=== PATIENT | male | born 1960 | race Caucasian/White ===

== ENCOUNTER 2023-01-13 05:32 | Inpatient (IN) ==
[2023-01-13] MEDS ORDERED: IOPAMIDOL 100 ML BOTTLE IV ONE (05:33)
--- NOTE | 2023-01-13 05:54 | Emergency Department Note ---
HPI General Chief complaint: Cold/Flu Symptoms Stated complaint: cough Time Seen by Provider: 01/13/23 05:50 Mode of arrival: ambulatory History of Present Illness HPI Narrative: Narrative: This 62-year-old male presents complaining of a chronic cough which recently has become much worse. He states he has had this level of cough for 5 months but is becoming more productive he denies any fever sweats or chills. Patient has lung cancer and is currently receiving chemotherapy. He also has past medical history of bipolar disorder and chronic kidney disease through lithium and NSAID use. Related Data Home Medications Medication Instructions Recorded Confirmed lamotrigine 200 mg tablet 200 mg PO QDAY 03/22/16 01/13/23 olanzapine 10 mg tablet 15 mg PO QDAY 04/24/17 01/13/23 Osteo Bi-Flex 500 mg PO BID 01/14/23 01/14/23 [id number]-Z-[id number]-10 100 mg PO QDAY 01/14/23 01/14/23 bupropion HCl 300 mg PO QDAY 01/14/23 01/14/23 ferrous sulfate 65 mg PO QDAY 01/14/23 01/14/23 omeprazole 20 mg tablet,delayed 20 mg PO QDAY 01/14/23 01/14/23 release ondansetron 8 mg disintegrating 8 mg PO Q8HP PRN Nausea 01/14/23 01/14/23 tablet Previous Rx's Medication Instructions Recorded cefdinir 300 mg capsule 300 mg PO BID #7 caps 01/15/23 Allergies Allergy/AdvReac Type Severity Reaction Status Date / Time venom-honey bee Allergy Severe Anaphylaxis Verified 04/24/17 15:06 [bee venom (honey bee)] Review of Systems ROS ROS Narrative: Narrative: All systems ED: reviewed and negative except as stated. PFS Narrative Patient History Narrative: Narrative: Medical/Surgical/Family History All Active Problems (Updated 01/13/23 @ 15:54 by Yunier Mazariegos MD) Hypoxemia (Acute) Community acquired pneumonia (Acute) Metastatic renal cell carcinoma to liver (Acute) Metastatic renal cell carcinoma to lung (Acute) Renal cell carcinoma of left kidney (Acute) Bipolar disorder (Acute) Generalized anxiety disorder (Acute) Hx of wisdom tooth extraction (Acute) Hx of tonsillectomy (Acute) Hx of colonoscopy (Acute) Hx of adenoidectomy (Acute) Sebaceous cyst (Chronic) Polyuria (Chronic) Polydipsia (Chronic) Abnormal glucose (Chronic) Chronic kidney disease (CKD), stage III (moderate) (Chronic) Bipolar disorder (Chronic) Medical History (Updated 01/13/23 @ 15:54 by Yunier Mazariegos MD) Abnormal glucose Bipolar disorder Type I Bipolar disorder Chronic kidney disease (CKD), stage III (moderate) Most recent s.creat is 1.4 which equals to egfr of 56ml/min per MDRD equation no h/o proteinuria use of lithium and NSAIDS is the risk factor for renal disease no electrolyte issues labs discussed with the pt once again emphasized the need for better water intake avoid NSAIDS will monitor in 6 mths Generalized anxiety disorder Polydipsia Polyuria Sebaceous cyst Surgical History (Updated 12/02/20 @ 10:57 by [employer]) Hx of adenoidectomy Hx of colonoscopy 12/2006 adenomatous polyps Hx of tonsillectomy Hx of wisdom tooth extraction Family History father Alcohol abuse mother Malignant neoplasm of colon paternal grandmother Arthritis In situ malignant neoplasm of skin maternal grandfather Malignant neoplasm of prostate Social History Alcohol Intake Frequency: holiday/special occasion only Exam Narrative Narrative: Narrative: General: Alert oriented x3 answers questions cogently. Skin: Very pa le. Pulmonary: Positive rhonchi on the right side to approximately alf up with no rales or wheezes. CV: Regular rate and rhythm without murmurs clicks rubs or gallops. Course Vital Signs Vital signs: Vital Signs Temperature 98.9 F 01/13/23 05:33 Pulse Rate 92 H 01/13/23 05:33 Respiratory Rate 24 H 01/13/23 05:33 Blood Pressure 128/65 01/13/23 05:33 Pulse Oximetry (%) 93 01/13/23 05:33 Oxygen Delivery Method Room Air 01/13/23 05:33 Temperature 99 F 01/15/23 15:14 Pulse Rate 84 01/15/23 15:14 Respiratory Rate 22 01/15/23 15:14 Blood Pressure 106/64 01/15/23 15:14 Pulse Oximetry (%) 92 01/15/23 15:14 Oxygen Delivery Method Nasal Cannula 01/15/23 15:14 Oxygen Flow Rate (L/min) 3 01/15/23 15:14 MDM MDM Narrative Medical decision making narrative: Narrative: Patient's chest x-ray has diffuse lesions presumably multiple foci of neoplasia. He also has what appears to be a right lower lobe infiltrate. His white count is normal although his H&H has a marked anemia since last April when he had a hemoglobin of 14. It is now 8.6 hematocrit 31.2 his platelets are normal BUN and creatinine are 25 and 1.3 procalcitonin is pending at this time as is a D-dimer. The patient was 89% SaO2 on room air. Treated the patient in the ED with azithromycin 500 p.o. as well as guaifenesin with codeine. The rest of the patient's lab work is not back at the time of this dictation; will turn over the patient at 0700 to my colleague coming on at that time. Sepsis Sepsis Identified: No Lab Data 01/15/23 05:55 01/14/23 05:25 Labs: Lab Results 01/13/23 01/13/23 01/13/23 Range/Units 06:02 06:03 06:03 WBC 6.3 (4.5-11.0) K/mcL RBC 3.86 L (4.63-6.08) M/mcL Hgb 8.6 L (13.7-17.5) g/dL Hct 31.2 L (40.1-51.0) % POC Hct (41-55) MCV 80.8 (80.0-100.0) fL MCH 22.3 L (26.0-34.0) pg MCHC 27.6 L (31.0-36.0) g/dL RDW 20.2 H (11.5-14.5) % Plt Count 324 (140-440) K/mcL MPV 8.3 L (8.8-12.5) fL Immature Gran % (Auto) 0.6 H (0.0-0.5) % Neut % (Auto) 64.4 (38.0-78.0) % Lymph % (Auto) 19.5 (15.5-49.0) % [place] % (Auto) 13.8 H (1.0-12.0) % Eos % (Auto) 0.6 (0.0-7.0) % Baso % (Auto) 1.1 (0.0-2.0) % Lymph # (Auto) 1.23 L (1.50-4.80) K/mcL [place] # (Auto) 0.87 (0.10-0.90) K/mcL Eos # (Auto) 0.04 (0.00-0.70) K/mcL Baso # (Auto) 0.07 (0.00-0.30) K/mcL Immature Gran # 0.04 (0.00-0.05) K/mcl Absolute Neutrophils 4.06 (1.80-8.00) K/mcL D-Dimer 1.86 H (0.27-0.50) ug/mL POC Sodium (133-145) POC Potassium (3.3-5.1) POC Chloride (96-108) POC Total CO2 (22-30) POC BUN (6-20) POC Creatinine (0.6-1.2) POC Glucose (70-105) POC WB Ioniz Calcium (1.16-1.32) Procalcitonin 0.82 H (<0.10) ng/mL 01/13/23 Range/Units 06:06 WBC (4.5-11.0) K/mcL RBC (4.63-6.08) M/mcL Hgb (13.7-17.5) g/dL Hct (40.1-51.0) % POC Hct 30.0 L (41-55) MCV (80.0-100.0) fL MCH (26.0-34.0) pg MCHC (31.0-36.0) g/dL RDW (11.5-14.5) % Plt Count (140-440) K/mcL MPV (8.8-12.5) fL Immature Gran % (Auto) (0.0-0.5) % Neut % (Auto) (38.0-78.0) % Lymph % (Auto) (15.5-49.0) % [place] % (Auto) (1.0-12.0) % Eos % (Auto) (0.0-7.0) % Baso % (Auto) (0.0-2.0) % Lymph # (Auto) (1.50-4.80) K/mcL [place] # (Auto) (0.10-0.90) K/mcL Eos # (Auto) (0.00-0.70) K/mcL Baso # (Auto) (0.00-0.30) K/mcL Immature Gran # (0.00-0.05) K/mcl Absolute Neutrophils (1.80-8.00) K/mcL D-Dimer (0.27-0.50) ug/mL POC Sodium 136 (133-145) POC Potassium 4.2 (3.3-5.1) POC Chloride 100 (96-108) POC Total CO2 27.0 (22-30) POC BUN 25 H (6-20) POC Creatinine 1.3 H (0.6-1.2) POC Glucose 102 (70-105) POC WB Ioniz Calcium 1.26 (1.16-1.32) Procalcitonin (<0.10) ng/mL Discharge Plan Patient/Caregiver Discharge Instructions Pt seen by BREAKFAST SERVER/PA only: No Clinical Impression: Hypoxemia Activity: increase activity as tolerated Patient Disposition: Xfer As Inpt ([facility]) Condition: Undetermined Discharge Date/Time: 01/13/23 16:15
[2023-01-13] MEDS ORDERED: guaiFENesin/CODEINE 10 ML UDC PO ONE (06:00)
[2023-01-13 06:10] LABS: POC Calcium, Ionized 1.26 (1.16-1.32); POC Creatinine 1.3 (0.6-1.2); POC Potassium 4.2 (3.3-5.1)
[2023-01-13 06:34] LABS: Basophils # (Auto) 0.07 K/mcL (0.00-0.30); Basophils % (Auto) 1.1 % (0.0-2.0); Eosinophils # (Auto) 0.04 K/mcL (0.00-0.70); Eosinophils % (Auto) 0.6 % (0.0-7.0); Hematocrit 31.2 % (40.1-51.0); Hemoglobin 8.6 g/dL (13.7-17.5); Lymphocytes # (Auto) 1.23 K/mcL (1.50-4.80); Lymphocytes % (Auto) 19.5 % (15.5-49.0); Mean Cell Volume 80.8 fL (80.0-100.0); Mean Corpuscular HGB Conc 27.6 g/dL (31.0-36.0); Mean Platelet Volume 8.3 fL (8.8-12.5); Monocytes # (Auto) 0.87 K/mcL (0.10-0.90); Monocytes % (Auto) 13.8 % (1.0-12.0); Neutrophils % (Auto) 64.4 % (38.0-78.0); Platelet Count 324 K/mcL (140-440); RBC 3.86 M/mcL (4.63-6.08); Red Cell Distribution Width 20.2 % (11.5-14.5); WBC 6.3 K/mcL (4.5-11.0)
[2023-01-13] MEDS ORDERED: AZITHROMYCIN 250 MG TABLET PO ONE (06:37)
--- NOTE | 2023-01-13 06:41 | XRay Report ---
INDICATION: cough TECHNIQUE: AP chest x-ray COMPARISON: None FINDINGS:Right chemotherapy infusion catheter. Catheter tip is in the superior vena cava. Lungs:Innumerable masses throughout both lungs. Appearance is consistent with disseminated pulmonary parenchymal metastases. No parenchymal consolidation or evidence for acute pneumonia Heart, vascular:No significant cardiomegaly. Pulmonary vascularity is normal. No pulmonary edema or pulmonary congestion Mediastinum, val:No mediastinal widening. No hilar mass Pleura:No pleural fluid. No pleural-based mass or calcification Skeletal:No rib lesions identified IMPRESSION: 1. Bilateral pulmonary parenchymal masses consistent with disseminated metastases 2. No evidence for pneumonia. No pulmonary edema. Interpreted and Authenticated by: Jitendra Byrd 01/13/23
--- NOTE | 2023-01-13 08:17 | Cat Scan Report ---
INDICATION: elevated d-dimer COMPARISON: Chest x-ray dated 01/13/2023 TECHNIQUE: Axial images obtained through the chest. 100ml Isovue 370 injected intravenously, and scanning was performed during pulmonary arterial phase. Sagittally and coronally reformatted images were obtained. MIP reformatted images. The examination was repeated with a total of 100 mL contrast material injected. Opacification of the pulmonary vasculature is suboptimal. FINDINGS: Lungs:Multiple round masses within both lungs. Appearance is consistent with pulmonary parenchymal metastases. This patient gives a history of renal cell carcinoma. There is mild groundglass density at both lung bases. Appearance is most consistent with dependent atelectasis. Pneumonia is possible. There is no parenchymal consolidation. Mediastinum, vascular:Main pulmonary artery, right pulmonary artery, left pulmonary artery are negative. No intraluminal filling defects. No lobar or segmental emboli. Thoracic aorta is negative. No aneurysmal dilatation No pathologic mediastinal or hilar adenopathy Heart:There is mild cardiomegaly. There is reflux of contrast material into the inferior vena cava and hepatic veins consistent with right heart strain Pleura:No significant pleural effusion. No pleural mass or calcification Axilla, supraclavicular regions, chest wall:No pathologic axillary or supraclavicular adenopathy. Musculoskeletal:Negative thoracic spine. No compression fracture. No lytic lesion. No rib or sternal lesions Upper Abdomen:Very large enhancing mass in the right lobe of the liver. This has been peripheral enhancement and low density center. Although a giant hemangioma can have an appearance similar to this on this patient has disseminated metastases in this is probably a necrotic metastasis. There is an enhancing left renal mass consistent with renal cell carcinoma. IMPRESSION: 1. Technically limited pulmonary CTA. No pulmonary emboli identified 2. Disseminated parenchymal metastases 3. Enhancing mass in the left kidney consistent with neoplasm 4. Very large hepatic mass could be a giant hemangioma but necrotic neoplasm suspected 5. Cardiomegaly. Reflux of contrast material into the inferior vena cava consistent with right heart strain The exam was performed using radiation dose optimization techniques including, but not limited to, automated exposure control, adjustment of the mA and/or kV according to patient size and use of iterative reconstruction technique. Interpreted and Authenticated by: Jitendra Byrd 01/13/23
[2023-01-13] MEDS ORDERED: cefTRIAXone 1 GM VIAL IV ONE (09:47)
--- NOTE | 2023-01-13 15:03 | Internal Med History&Physical ---
HPI History of Present Illness Patient information: Note initiated : 01/13/23 at 2:52 pm Service Date, if different from initiated Date: [] Patient: Eric Fuentes a 62 y/o M admitted on for cough. Chief Complaint: [weakness, shortness of breath] Chief complaint: weakness, shortness of breath History of present illness: Mr. Fuentes is a 62 year old M history of recently diagnosed renal cell carcinoma, bipolar disorder, general anxiety disorder, presenting with 4 weeks history of progressively worsening general body weakness, nonproductive cough, shortness of breath, and diaphoresis. He was being diagnosed with renal cell carcinoma in September 2022, and he is in the prior cyst of chemotherapy. Over the past 4 weeks, patient is experiencing progressively worsening general body weakness, shortness of breath, nonproductive cough, and diaphoresis. He presented to our ED today for further evaluations due to the worsening nature of his symptoms. Vital signs significant for oxygen desaturations when he ambulates to the point that he would require up to 2 L/min nasal cannula oxygen's. Otherwise the rest of the vital signs were within normal limits. Labs significant for lack of leukocytosis with WBC 6.3. COVID, influenza a and B, RSV screening are negative. D-dimer elevated at 1.86. Procalcitonin level 0.82. Chest x-ray and CT angiogram of the chest were performed showing negative for pulmonary embolism, negative for focal infiltrate, but positive for disseminated parenchymal metastasis. It also showing enhancing mass in the left kidney consistent with the history of the renal cell carcinoma. There is also a very large hepatic mass that could be a giant hemangioma but necrotic neoplasm suspected. ER physician tried to contact to [facility] where his oncology team is located in the would be okay to be consulted for the care of the patient's but there hospitalist refused to admit the patient. I would like to offer to start therapy for the patient here and with encouraged or suggest to transfer the care to [facility] if the patient's conditions continue to deteriorate. Constitutional Constitutional: Present excessive sweating and weakness; Absent chills or fatigue EENT Eyes: Absent blurry vision, change in vision, loss of vision or other visual disturbances Ears: Absent decreased hearing or tinnitus Nose, mouth and throat: Absent abnormal hearing, dry mouth, headache(s), nasal congestion or sore throat Cardiovascular Cardiovascular: Absent chest pain, chest pain at rest, edema, irregular heart rhythm or palpatations Respiratory Respiratory: Present cough and dyspnea; Absent wheezing Gastrointestinal Gastrointestinal: Absent abdominal pain, constipation, diarrhea, nausea or vomiting Musculoskeletal Musculoskeletal: Absent back pain, deformity, limited range of motion, muscle cramps, muscle weakness or numbness Integumentary Integumentary: Absent lesions, rash or wounds Neurological Neurological: Absent focal weakness, headache(s) or numbness Psychiatric Psychiatric: Absent anxiety, depression or hallucinations PFSH PFSH All Active Problems (Updated 01/13/23 @ 14:59 by Hugo Rangel MD) Community acquired pneumonia (Acute) Metastatic renal cell carcinoma to liver (Acute) Metastatic renal cell carcinoma to lung (Acute) Renal cell carcinoma of left kidney (Acute) Bipolar disorder (Acute) Generalized anxiety disorder (Acute) Hx of wisdom tooth extraction (Acute) Hx of tonsillectomy (Acute) Hx of colonoscopy (Acute) Hx of adenoidectomy (Acute) Sebaceous cyst (Chronic) Polyuria (Chronic) Polydipsia (Chronic) Abnormal glucose (Chronic) Chronic kidney disease (CKD), stage III (moderate) (Chronic) Bipolar disorder (Chronic) Medical History (Updated 01/13/23 @ 14:59 by Hugo Rangel MD) Abnormal glucose Bipolar disorder Type I Bipolar disorder Chronic kidney disease (CKD), stage III (moderate) Most recent s.creat is 1.4 which equals to egfr of 56ml/min per MDRD equation no h/o proteinuria use of lithium and NSAIDS is the risk factor for renal disease no electrolyte issues labs discussed with the pt once again emphasized the need for better water intake avoid NSAIDS will monitor in 6 mths Generalized anxiety disorder Polydipsia Polyuria Sebaceous cyst Surgical History (Updated 12/02/20 @ 10:57 by [employer] [place]) Hx of adenoidectomy Hx of colonoscopy 12/2006 adenomatous polyps Hx of tonsillectomy Hx of wisdom tooth extraction Family History father Alcohol abuse mother Malignant neoplasm of colon paternal grandmother Arthritis In situ malignant neoplasm of skin maternal grandfather Malignant neoplasm of prostate Social History marital status: single frequency: 5-6 times per week alcohol intake frequency: holiday/special occasion only MEDS/ALLERGIES Home Medications and Allergies Home Medications Medication Instructions Recorded Confirmed Type lamotrigine 200 mg tablet 200 mg PO QDAY 03/22/16 04/24/17 History olanzapine 10 mg tablet 15 mg PO QDAY 04/24/17 04/24/17 History Allergies Allergy/AdvReac Type Severity Reaction Status Date / Time venom-honey bee Allergy Severe Anaphylaxis Verified 04/24/17 15:06 [bee venom (honey bee)] EXAM Constitutional Vitals: Temp Pulse Resp BP Pulse Ox O2 Del Method O2 Flow Rate 37.2 C 100 H 24 H 139/70 94 Room Air 2 01/13/23 05:33 01/13/23 13:00 01/13/23 14:30 01/13/23 14:30 01/13/23 12:30 01/13/23 10:12 01/13/23 07:59 General appearance: cooperative and no acute distress Head Head exam: Present atraumatic and normocephalic Eye Eye exam: Present EOMI and PERRL ENT ENT exam: Present mucous membranes moist, normal exam and normal external ear exam Neck Neck exam: Present normal inspection; Absent lymphadenopathy, tenderness or thyromegaly Respiratory Respiratory exam: Present decreased breath sounds and rhonchi; Absent accessory muscle use, respiratory distress or wheezes Cardiovascular Cardiovascular exam: Present normal rate and rhythm; Absent JVD GI/Abdominal GI/Abdominal exam: Present normal bowel sounds and soft; Absent organomegaly or tenderness Rectal Rectal exam: Present deferred Extremities Exam Extremities exam: Present full ROM, normal capillary refill and normal inspection; Absent tenderness Neurological Exam Neurological exam: Present alert, CN II-XII intact and oriented X3; Absent motor sensory deficit Psychiatric Psychiatric exam: Present normal affect and normal mood; Absent anxious or depressed Skin Skin exam: Present dry and intact DATA Data Completed and Pending Labs: Labs from last 24 hours 01/13/23 01/13/23 01/13/23 06:06 06:03 06:03 WBC 6.3 RBC 3.86 L Hgb 8.6 L Hct 31.2 L POC Hct 30.0 L MCV 80.8 MCH 22.3 L MCHC 27.6 L RDW 20.2 H Plt Count 324 MPV 8.3 L Immature Gran % (Auto) 0.6 H Neut % (Auto) 64.4 Lymph % (Auto) 19.5 [place] % (Auto) 13.8 H Eos % (Auto) 0.6 Baso % (Auto) 1.1 Lymph # (Auto) 1.23 L [place] # (Auto) 0.87 Eos # (Auto) 0.04 Baso # (Auto) 0.07 Immature Gran # 0.04 Absolute Neutrophils 4.06 D-Dimer 1.86 H POC Sodium 136 POC Potassium 4.2 POC Chloride 100 POC Total CO2 27.0 POC BUN 25 H POC Creatinine 1.3 H POC Glucose 102 POC WB Ioniz Calcium 1.26 Procalcitonin 01/13/23 06:02 WBC RBC Hgb Hct POC Hct MCV MCH MCHC RDW Plt Count MPV Immature Gran % (Auto) Neut % (Auto) Lymph % (Auto) [place] % (Auto) Eos % (Auto) Baso % (Auto) Lymph # (Auto) [place] # (Auto) Eos # (Auto) Baso # (Auto) Immature Gran # Absolute Neutrophils D-Dimer POC Sodium POC Potassium POC Chloride POC Total CO2 POC BUN POC Creatinine POC Glucose POC WB Ioniz Calcium Procalcitonin 0.82 H A/P Assessment and plan (1) Bipolar disorder: Status: Acute (2) Generalized anxiety disorder: Status: Acute (3) Renal cell carcinoma of left kidney: Status: Acute (4) Metastatic renal cell carcinoma to lung: Status: Acute (5) Metastatic renal cell carcinoma to liver: Status: Acute (6) Community acquired pneumonia: Status: Acute Narrative A/P Narrative: Assessment and Plans: 1. Dyspnea, weakness: DDx: metastatic renal cell carcinoma to lung, community acquired pneumonia: ER physician tried to contact to [facility] where his oncology team is located in the would be okay to be consulted for the care of the patient's but there hospitalist refused to admit the patient. I would like to offer to start therapy for the patient here and with encouraged or suggest to transfer the care to [facility] if the patient's conditions continue to deteriorate. Observation med surg Serial lactic acid Procalcitonin level Blood culture cbc w/ auto diff in the morning to trend WBC Rocephin Zithromax Robitussin DM Supplemental oxygen therapy as needed to achieve spo2>=92% Physical therapy evaluation and treatment manager storage consultation 2. Renal cell 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: Need oncology team to follow up either inpatient or outpatient 3. Bipolar depression with anxiety: Lamotrigine Olanzapine GI ppx: not currently indicated DVT ppx: Lovenox Code status: Full Prognosis: guarded Disposition: observation med surg; PT Time Spent With Patient Time: Total time spent is greater than 50% in coordination of care (as documented) at patient's floor/unit and/or counseling patient: Initial: Total time with patient: 55 - 74 minutes
--- NOTE | 2023-01-13 15:54 | Emergency Department Note ---
Course Course Course Narrative: Patient is a 62-year-old male signed out to me by Dr. Figueroa. Briefly, patient presented due to cough, but was found to have hypoxemia. Patient has known renal cell carcinoma with metastases to the liver and lungs. D-dimer was elevated. CT angiogram of the chest was pending at the time of signout. Vital Signs Vital signs: Vital Signs Temperature 98.9 F 01/13/23 05:33 Pulse Rate 92 H 01/13/23 05:33 Respiratory Rate 24 H 01/13/23 05:33 Blood Pressure 128/65 01/13/23 05:33 Pulse Oximetry (%) 93 01/13/23 05:33 Oxygen Delivery Method Room Air 01/13/23 05:33 Temperature 98.9 F 01/13/23 05:33 Pulse Rate 100 H 01/13/23 13:00 Respiratory Rate 24 H 01/13/23 14:30 Blood Pressure 127/64 01/13/23 15:00 Pulse Oximetry (%) 94 01/13/23 12:30 Oxygen Delivery Method Room Air 01/13/23 10:12 Oxygen Flow Rate (L/min) 2 01/13/23 07:59 [facility] MDM Narrative Medical decision making narrative: Narrative: Patient is a 62-year-old male who presented to the emergency department due to cough, but was found to have hypoxemia. CT angio demonstrates the lung metastases and bilateral groundglass opacity. Atelectasis favored, but pneumonia is possible. For this reason patient has received ceftriaxone and azithromycin. Due to patient's oncology diagnosis I did speak to Dr. Sanchez in [place]. She did not have specific recommendations, but stated that she would see the patient at [facility] if we transferred to [facility]. I then spoke with the patient. He is in agreement with the plan for admission, but requested admission at [facility]. Due to his oncology diagnosis and his request for an admission at [facility] we did call [facility]. Initially there were no beds available. I spoke with patient again about this. He requested that we wait until early afternoon to see if a bed would become available. [facility] does have an available bed at this time. I spoke with Dr. Williamson who did not agree that patient should be in a location with oncology. She stated that he should be treated for his hypoxemia and potential pneumonia and then consider transfer if there continue to be or are increased concerns for patient's hypoxemia being due to his lung metastases. I did speak to her about the patient requesting a transfer. She stated that she was concerned that this would be an EMTALA violation. I did tell her that I did not think that this would be an EMTALA violation, but she did request that I speak to our hospitalist and the patient again. I spoke to the patient and he did eventually agree to an admission at [facility] if the hospitalist agrees to this. I then spoke to Dr. Rangel and he stated concern about patient's oncology diagnosis and the likelihood that his s ymptoms could be due to this diagnosis. He was concerned that patient would need other specialties including oncology involved. I did ask Dr. Rangel if he could speak to Dr. Williamson because I had already relayed all of these concerns. He did agree. Ashlyn, dye house wheel operator, did update me on the situation with the patient's admission. She stated that there was an attempt made to contact Dr. Williamson again, but she refused to speak to Dr. Rangel, per Ashlyn, because she had already been called too many times. Dr. Rangel did agree at that time to admit patient and to continue to reevaluate until he is able to reach out again to [facility]. Lab Data 01/13/23 06:03 Labs: Lab Results 01/13/23 01/13/23 01/13/23 Range/Units 06:02 06:03 06:03 WBC 6.3 (4.5-11.0) K/mcL RBC 3.86 L (4.63-6.08) M/mcL Hgb 8.6 L (13.7-17.5) g/dL Hct 31.2 L (40.1-51.0) % POC Hct (41-55) MCV 80.8 (80.0-100.0) fL MCH 22.3 L (26.0-34.0) pg MCHC 27.6 L (31.0-36.0) g/dL RDW 20.2 H (11.5-14.5) % Plt Count 324 (140-440) K/mcL MPV 8.3 L (8.8-12.5) fL Immature Gran % (Auto) 0.6 H (0.0-0.5) % Neut % (Auto) 64.4 (38.0-78.0) % Lymph % (Auto) 19.5 (15.5-49.0) % [place] % (Auto) 13.8 H (1.0-12.0) % Eos % (Auto) 0.6 (0.0-7.0) % Baso % (Auto) 1.1 (0.0-2.0) % Lymph # (Auto) 1.23 L (1.50-4.80) K/mcL [place] # (Auto) 0.87 (0.10-0.90) K/mcL Eos # (Auto) 0.04 (0.00-0.70) K/mcL Baso # (Auto) 0.07 (0.00-0.30) K/mcL Immature Gran # 0.04 (0.00-0.05) K/mcl Absolute Neutrophils 4.06 (1.80-8.00) K/mcL D-Dimer 1.86 H (0.27-0.50) ug/mL POC Sodium (133-145) POC Potassium (3.3-5.1) POC Chloride (96-108) POC Total CO2 (22-30) POC BUN (6-20) POC Creatinine (0.6-1.2) POC Glucose (70-105) POC WB Ioniz Calcium (1.16-1.32) Procalcitonin 0.82 H (<0.10) ng/mL 01/13/23 Range/Units 06:06 WBC (4.5-11.0) K/mcL RBC (4.63-6.08) M/mcL Hgb (13.7-17.5) g/dL Hct (40.1-51.0) % POC Hct 30.0 L (41-55) MCV (80.0-100.0) fL MCH (26.0-34.0) pg MCHC (31.0-36.0) g/dL RDW (11.5-14.5) % Plt Count (140-440) K/mcL MPV (8.8-12.5) fL Immature Gran % (Auto) (0.0-0.5) % Neut % (Auto) (38.0-78.0) % Lymph % (Auto) (15.5-49.0) % [place] % (Auto) (1.0-12.0) % Eos % (Auto) (0.0-7.0) % Baso % (Auto) (0.0-2.0) % Lymph # (Auto) (1.50-4.80) K/mcL [place] # (Auto) (0.10-0.90) K/mcL Eos # (Auto) (0.00-0.70) K/mcL Baso # (Auto) (0.00-0.30) K/mcL Immature Gran # (0.00-0.05) K/mcl Absolute Neutrophils (1.80-8.00) K/mcL D-Dimer (0.27-0.50) ug/mL POC Sodium 136 (133-145) POC Potassium 4.2 (3.3-5.1) POC Chloride 100 (96-108) POC Total CO2 27.0 (22-30) POC BUN 25 H (6-20) POC Creatinine 1.3 H (0.6-1.2) POC Glucose 102 (70-105) POC WB Ioniz Calcium 1.26 (1.16-1.32) Procalcitonin (<0.10) ng/mL Discharge Plan Patient/Caregiver Discharge Instructions Pt seen by SPRING FORGER/PA only: No Clinical Impression: Hypoxemia Patient Disposition: Xfer As Inpt ([facility]) Follow up with: Anuj Maki MD [Primary Care Provider] - Prescriptions: No Action lamotrigine 200 mg tablet 200 mg PO QDAY olanzapine 10 mg tablet 15 mg PO QDAY
[2023-01-13] MEDS ORDERED: traZODone HCL 50 MG TABLET PO PRN (15:56)
[2023-01-13] MEDS ORDERED: ONDANSETRON 4 MG/2 ML VIAL IV PRN (15:56)
[2023-01-13] MEDS ORDERED: oxyCODONE HCL 5 MG TABLET PO PRN (15:56)
[2023-01-13] MEDS ORDERED: cefTRIAXone 1 GM in DEXTROSE 5% IN WATER 50 ML IV SCH (15:56)
[2023-01-13] MEDS ORDERED: AZITHROMYCIN 500 MG in DEXTROSE 5% IN WATER 250 ML IV SCH (15:56)
[2023-01-13] MEDS ORDERED: morphine 4 MG/ML VIAL IV PRN (15:56)
[2023-01-13] MEDS ORDERED: guaiFENesin/DEXTROMETHORPHAN 5ML UD CUP PO PRN (15:56)
[2023-01-13] MEDS ORDERED: IPRATROPIUM/ALBUTEROL 3 ML AMPUL.NEB NEB PRN (15:56)
[2023-01-13] MEDS: 0.9 % SODIUM CHLORIDE 1,000 ML IV SCH (16:50)
[2023-01-13] MEDS ORDERED: PNEUMOCOCCAL 23-VAL P-SAC VAC 0.5 ML SYRINGE IM ONE (17:36)
[2023-01-13] MEDS: ACETAMINOPHEN 325 MG TABLET PO PRN (19:10)
[2023-01-13] MEDS: DOCUSATE SODIUM 100 MG CAPSULE PO SCH (20:44)
[2023-01-13] MEDS: SENNOSIDES 1 TABLET PO SCH (20:45)
[2023-01-13] MEDS: 0.9 % SODIUM CHLORIDE 10 ML SYRINGE IV SCH (20:55)
[2023-01-14] MEDS: 0.9 % SODIUM CHLORIDE 1,000 ML IV SCH ×3 (03:28→23:08)
[2023-01-14 06:21] LABS: Basophils # (Auto) 0.04 K/mcL (0.00-0.30); Basophils % (Auto) 0.6 % (0.0-2.0); Eosinophils # (Auto) 0.01 K/mcL (0.00-0.70); Eosinophils % (Auto) 0.2 % (0.0-7.0); Hematocrit 28.7 % (40.1-51.0); Hemoglobin 7.9 g/dL (13.7-17.5); Lymphocytes # (Auto) 1.09 K/mcL (1.50-4.80); Lymphocytes % (Auto) 17.4 % (15.5-49.0); Mean Cell Volume 81.3 fL (80.0-100.0); Mean Corpuscular HGB Conc 27.5 g/dL (31.0-36.0); Mean Platelet Volume 8.6 fL (8.8-12.5); Monocytes # (Auto) 0.73 K/mcL (0.10-0.90); Monocytes % (Auto) 11.6 % (1.0-12.0); Neutrophils % (Auto) 69.4 % (38.0-78.0); Platelet Count 275 K/mcL (140-440); RBC 3.53 M/mcL (4.63-6.08); Red Cell Distribution Width 20.2 % (11.5-14.5); WBC 6.3 K/mcL (4.5-11.0)
[2023-01-14] MEDS: 0.9 % SODIUM CHLORIDE 10 ML SYRINGE IV SCH ×3 (06:22→20:53)
[2023-01-14 06:47] LABS: ALT/SGPT 22 U/L (<40); AST/SGOT 23 U/L (<40); Albumin 2.3 gm/dL (3.2-5.2); Albumin/Globulin Ratio 0.6 (1.0-2.3); Alkaline Phosphatase 561 U/L (39-117); Bilirubin,Total 0.5 mg/dL (0.1-1.0); Blood Urea Nitrogen 21 mg/dL (6-20); Calcium 9.6 mg/dL (8.6-10.4); Carbon Dioxide 25 mmol/L (22-30); Chloride 102 mmol/L (96-108); Globulin 3.6 gm/dL (2.2-3.7); Glomerular Filtration Rate 65; Glucose 94 mg/dL (70-105)
[2023-01-14] MEDS: ENOXAPARIN 40 MG/0.4 ML SYRINGE SQ SCH (08:01)
[2023-01-14] MEDS: lamoTRIgine 100 MG TABLET PO SCH (08:01)
[2023-01-14] MEDS: OLANZapine 5 MG TABLET PO SCH (08:01)
[2023-01-14] MEDS: DOCUSATE SODIUM 100 MG CAPSULE PO SCH ×2 (08:01→20:53)
[2023-01-14] MEDS: cefTRIAXone 1 GM VIAL IV SCH (08:39)
--- NOTE | 2023-01-14 09:48 | Internal Med Progress Note ---
SUBJECTIVE Subjective Patient information: Note initiated : 01/14/23 at 9:44 am Service Date, if different from initiated Date: [] Patient: Eric Fuentes a 62 y/o M admitted on 01/13/23 for cough. Chief Complaint: [] Interval history: Mr. Fuentes is a 62 year old M history of recently diagnosed renal cell carcinoma, bipolar disorder, general anxiety disorder, presenting with 4 weeks history of progressively worsening general body weakness, nonproductive cough, shortness of breath, and diaphoresis. He was being diagnosed with renal cell carcinoma in September 2022, and he is in the prior cyst of chemotherapy. Over the past 4 weeks, patient is experiencing progressively worsening general body weakness, shortness of breath, nonproductive cough, and diaphoresis. He presented to our ED today for further evaluations due to the worsening nature of his symptoms. Vital signs significant for oxygen desaturations when he ambulates to the point that he would require up to 2 L/min nasal cannula oxygen's. Otherwise the rest of the vital signs were within normal limits. Labs significant for lack of leukocytosis with WBC 6.3. COVID, influenza a and B, RSV screening are negative. D-dimer elevated at 1.86. Procalcitonin level 0.82. Chest x-ray and CT angiogram of the chest were performed showing negative for pulmonary embolism, negative for focal infiltrate, but positive for disseminated parenchymal metastasis. It also showing enhancing mass in the left kidney consistent with the history of the renal cell carcinoma. There is also a very large hepatic mass that could be a giant hemangioma but necrotic neoplasm suspected. ER physician tried to contact to [facility] where his oncology team is located in the would be okay to be consulted for the care of the patient's but there hospitalist refused to admit the patient. I would like to offer to start therapy for the patient here and with encouraged or suggest to transfer the care to [facility] if the patient's conditions continue to deteriorate. 01/14: There was no major overnight events. He is currently on 2 L/min nasal cannula oxygen. Fever with Tmax 38.6 C overnight. Cultures no growth to date. His degree of shortness of breath has improved. He is coming of nonproductive cough. He denies any respiratory wheezings. He denies any chest pain. Continue supplemental oxygen therapy as needed to keep SPO2 above or equal to 92%. Continue IV fluid, Rocephin, azithromycin for bacterial pneumonia. Continue to monitor blood culture results. Continue to work with physical therapy for placement planning, tentatively he would go home tomorrow with home health physical therapy. He also need to follow-up with oncology outpatient for the treatment of metastatic renal cell carcinoma. Overall condition is guarded. Constitutional Vitals: Vital Signs Temp Pulse Resp BP Pulse Ox O2 Del Method O2 Flow Rate 37.2 C 96 H 24 H 104/63 92 Nasal Cannula 2 01/14/23 07:52 01/14/23 07:52 01/14/23 07:52 01/14/23 07:52 01/14/23 08:00 01/14/23 08:00 01/14/23 08:00 Period Temp Pulse Resp BP Sys/Santillan Pulse Ox O2 Del Method O2 Flow Rate Last 24 Hr 37.2 C-38.6 C 92-110 16-32 104-147/51-84 87-94 Nasal Cannula- Room Air 1-2 Intake and Output 01/13/23 01/14/23 01/14/23 19:59 03:59 11:59 Intake Total 400 1690 1200 Output Total 500 1875 1100 Balance -100 -185 100 Weight 70.443 kg Intake & Output: Intake & Output 01/13/23 01/14/23 01/14/23 19:59 03:59 11:59 Intake Total 400 1690 1200 Output Total 500 1875 1100 Balance -100 -185 100 Weight 70.443 kg Intake: IV 1000 Sodium Chloride 0.9% 1,000 ml @ 1000 100 mls/hr IV .Q10H [facility] Rx#: [id number] Oral 490 400 GI Tube Flush 400 200 800 Output: Void Amount 500 1875 1100 Other: Meal Dinner Breakfast Percent of Meal Consumed 60 100% Feeding Ability Independent Independent Urine Appearance Clear Clear Clear Urine Color Yellow Yellow Yellow Urine Odor Normal Normal Normal General appearance: cooperative and thin Exam: cachectic Head Head exam: Present atraumatic and normal inspection Eye Eye exam: Present normal appearance ENT ENT exam: Present mucous membranes moist, normal exam and normal external ear exam Additional comments: Nasal cannula in place Neck Neck exam: Present normal inspection Respiratory Respiratory exam: Present decreased breath sounds Cardiovascular Cardiovascular exam: Present normal rate and rhythm GI/Abdominal GI/Abdominal exam: Present normal bowel sounds Back Exam Back exam: Present normal inspection Neurological Exam Neurological exam: Present alert and oriented X3 Skin Skin exam: Present intact and warm OBJ DATA Labs 01/14/23 05:25 01/14/23 05:25 Labs: Abnormal Lab Results 01/14/23 01/14/23 01/13/23 05:25 05:25 16:48 RBC 3.53 L Hgb 7.9 L Hct 28.7 L POC Hct MCH 22.4 L MCHC 27.5 L RDW 20.2 H MPV 8.6 L Immature Gran % (Auto) 0.8 H [place] % (Auto) Lymph # (Auto) 1.09 L D-Dimer VBG Lactic Acid < 0.2 L POC BUN BUN 21 H POC Creatinine Alkaline Phosphatase 561 H Albumin 2.3 L Albumin/Globulin Ratio 0.6 L Procalcitonin 01/13/23 01/13/23 01/13/23 06:06 06:03 06:03 RBC 3.86 L Hgb 8.6 L Hct 31.2 L POC Hct 30.0 L MCH 22.3 L MCHC 27.6 L RDW 20.2 H MPV 8.3 L Immature Gran % (Auto) 0.6 H [place] % (Auto) 13.8 H Lymph # (Auto) 1.23 L D-Dimer 1.86 H VBG Lactic Acid POC BUN 25 H BUN POC Creatinine 1.3 H Alkaline Phosphatase Albumin Albumin/Globulin Ratio Procalcitonin 01/13/23 06:02 RBC Hgb Hct POC Hct MCH MCHC RDW MPV Immature Gran % (Auto) [place] % (Auto) Lymph # (Auto) D-Dimer VBG Lactic Acid POC BUN BUN POC Creatinine Alkaline Phosphatase Albumin Albumin/Globulin Ratio Procalcitonin 0.82 H Meds: Medications Acetaminophen (Acetaminophen 325 Mg Tablet) 650 mg PO Q6HP PRN; Protocol PRN Reason: Per Pain Protocol/Fever > 101 Last Admin: 01/13/23 19:10 Dose: 650 mg Albuterol/Ipratropium (Ipratropium/Albuterol 3 Ml Ampul.Neb) 3 ml NEB Q4HRT PRN PRN Reason: Wheezing Ceftriaxone Sodium (Ceftriaxone 1 Gm Vial) 1 gm IV Q24H [facility] Last Admin: 01/14/23 08:39 Dose: 1 gm Docusate Sodium (Docusate Sodium 100 Mg Capsule) 100 mg PO BID [facility] Last Admin: 01/14/23 08:01 Dose: 100 mg Enoxaparin Sodium (Enoxaparin 40 Mg/0.4 Ml Syringe) 40 mg SQ DAILY [facility] Last Admin: 01/14/23 08:01 Dose: 40 mg Guaifenesin (Guaifenesin/Dextromethorphan 5ml Ud Cup) 10 ml PO Q4HP PRN PRN Reason: Cough Last Admin: 01/13/23 19:14 Dose: 10 ml Sodium Chloride (Sodium Chloride 0.9%) 1,000 mls @ 100 mls/hr IV .Q10H [facility] Last Admin: 01/14/23 03:28 Dose: 100 mls/hr Azithromycin 500 mg/ Dextrose 250 mls @ 250 mls/hr IV Q24H [facility]; Protocol Stop: 01/15/23 10:59 Lamotrigine (Lamotrigine 100 Mg Tablet) 200 mg PO DAILY [facility] Last Admin: 01/14/23 08:01 Dose: 200 mg Morphine Sulfate (Morphine 4 Mg/Ml Vial) 2 mg IV Q4HP PRN; Protocol PRN Reason: Per Pain Protocol Olanzapine (Olanzapine 5 Mg Tablet) 15 mg PO QDAY [facility] Last Admin: 01/14/23 08:01 Dose: 15 mg Ondansetron HCl (Ondansetron 4 Mg/2 Ml Vial) 4 mg IV Q6HP PRN PRN Reason: Nausea And Vomiting Oxycodone HCl (Oxycodone Hcl 5 Mg Tablet) 5 mg PO Q4HP PRN; Protocol PRN Reason: Per Pain Protocol Polyethylene Glycol (Polyethylene Glycol 3350 17 Gm Packet) 17 gm PO DAILYP PRN PRN Reason: Constipation Senna (Sennosides 1 Tablet) 2 tab PO HS [facility] Last Admin: 01/13/23 20:45 Dose: Not Given Sodium Chloride (0.9 % Sodium Chloride 10 Ml Syringe) 10 ml IV Q8 [facility] Last Admin: 01/14/23 06:22 Dose: Not Given Trazodone HCl (Trazodone Hcl 50 Mg Tablet) 25 mg PO HSP PRN PRN Reason: Insomnia A/P Assessment and plan (1) Bipolar disorder: Status: Acute (2) Generalized anxiety disorder: Status: Acute (3) Renal cell carcinoma of left kidney: Status: Acute (4) Metastatic renal cell carcinoma to lung: Status: Acute (5) Metastatic renal cell carcinoma to liver: Status: Acute (6) Community acquired pneumonia: Status: Acute Narrative A/P Narrative: Assessment and Plans: 1. Dyspnea, weakness: DDx: metastatic renal cell carcinoma to lung, community acquired pneumonia: ER physician tried to contact to [facility] where his oncology team is located in the would be okay to be consulted for the care of the patient's but there hospitalist refused to admit the patient. I would like to offer to start therapy for the patient here and with encouraged or suggest to transfer the care to [facility] if the patient's conditions continue to deteriorate. Observation med surg Serial lactic acid Procalcitonin level Blood culture, no growth to date cbc w/ auto diff in the morning to trend WBC Rocephin Zithromax Robitussin DM Supplemental oxygen therapy as needed to achieve spo2>=92% Physical therapy evaluation and treatment manager resource consultation 2. Renal cell 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: Need oncology team to follow up either inpatient or outpatient 3. Bipolar depression with anxiety: Lamotrigine Olanzapine GI ppx: not currently indicated DVT ppx: Lovenox Code status: Full Prognosis: guarded Disposition: observation med surg; PT Time Spent With Patient Time: Total time spent is greater than 50% in coordination of care (as documented) at patient's floor/unit and/or counseling patient: Subsequent: Total time with patient: 35 - 49 minutes QUALITY VTE Deep Vein Thrombosis/Pulmonary Embolism Present on Admission: No
[2023-01-14] MEDS: AZITHROMYCIN 500 MG in DEXTROSE 5% IN WATER 250 ML IV SCH (10:13)
--- NOTE | 2023-01-14 12:44 | Internal Med Progress Note ---
SUBJECTIVE Subjective Patient information: Note initiated : 01/14/23 at 12:37 pm Service Date, if different from initiated Date: [] Patient: Eric Fuentes a 62 y/o M admitted on 01/13/23 for cough. Chief Complaint: [] Interval history: Mr. Fuentes is a 62 year old M history of recently diagnosed renal cell carcinoma, bipolar disorder, general anxiety disorder, presenting with 4 weeks history of progressively worsening general body weakness, nonproductive cough, shortness of breath, and diaphoresis. He was being diagnosed with renal cell carcinoma in September 2022, and he is in the prior cyst of chemotherapy. Over the past 4 weeks, patient is experiencing progressively worsening general body weakness, shortness of breath, nonproductive cough, and diaphoresis. He presented to our ED today for further evaluations due to the worsening nature of his symptoms. Vital signs significant for oxygen desaturations when he ambulates to the point that he would require up to 2 L/min nasal cannula oxygen's. Otherwise the rest of the vital signs were within normal limits. Labs significant for lack of leukocytosis with WBC 6.3. COVID, influenza a and B, RSV screening are negative. D-dimer elevated at 1.86. Procalcitonin level 0.82. Chest x-ray and CT angiogram of the chest were performed showing negative for pulmonary embolism, negative for focal infiltrate, but positive for disseminated parenchymal metastasis. It also showing enhancing mass in the left kidney consistent with the history of the renal cell carcinoma. There is also a very large hepatic mass that could be a giant hemangioma but necrotic neoplasm suspected. ER physician tried to contact to [facility] where his oncology team is located in the would be okay to be consulted for the care of the patient's but there hospitalist refused to admit the patient. I would like to offer to start therapy for the patient here and with encouraged or suggest to transfer the care to [facility] if the patient's conditions continue to deteriorate. 01/14: There was no major overnight events. He is currently on 2 L/min nasal cannula oxygen. Fever with Tmax 38.6 C overnight. Cultures no growth to date. His degree of shortness of breath has improved. He is coming of nonproductive cough. He denies any respiratory wheezings. He denies any chest pain. Continue supplemental oxygen therapy as needed to keep SPO2 above or equal to 92%. Continue IV fluid, Rocephin, azithromycin for bacterial pneumonia. Continue to monitor blood culture results. Continue to work with physical therapy for placement planning, tentatively he would go home tomorrow with home health physical therapy. He also need to follow-up with oncology outpatient for the treatment of metastatic renal cell carcinoma. Overall condition is guarded. / Review of Systems: denies headache/fever/chills/nausea/vomiting/chest or abdominal pain/cough/dyspnea/diarrhea. Otherwise see above. PHYSICAL EXAM General: Alert, Awake, No acute Distress Eyes/N/T: EOMI, no scleral icterus, Head/Neck: neck supple, full ROM, CV: RRR, No murmurs, Pulm: Decreased BS b/l, no wheezing/rhonchi/rales, no respiratory distress Abd: soft, nontender, +BS x4 Ext: no clubbing/cyanosis/edema, nontender Neuro: Alert, no focal deficits, moves all extremities,, sensations intact b/l upper/lower Psychiatric: Skin: warm/dry, normal color Constitutional Vitals: Vital Signs Temp Pulse Resp BP Pulse Ox O2 Del Method O2 Flow Rate 99.6 F H 108 H 22 116/70 94 Nasal Cannula 2 01/14/23 12:00 01/14/23 12:00 01/14/23 12:00 01/14/23 12:00 01/14/23 12:00 01/14/23 12:00 01/14/23 12:00 Period Temp Pulse Resp BP Sys/Santillan Pulse Ox O2 Del Method O2 Flow Rate Last 24 Hr 98.9 F-101.5 F 94-110 16-32 104-147/51-75 89-94 Nasal Cannula- Room Air 1-2 Intake and Output 01/14/23 01/14/23 01/14/23 03:59 11:59 19:59 Intake Total 1689 2089 Output Total 1874 1849 Balance -185 240 Intake & Output: Intake & Output 01/14/23 01/14/23 01/14/23 03:59 11:59 19:59 Intake Total 1689 2089 Output Total 18740 Balance -185 240 Intake: IV 1000 250 Sodium Chloride 0.9% 1,000 ml @ 1000 100 mls/hr IV .Q10H [facility] Rx#: [id number] Zithromax 500 mg In Dextrose 5% 250 in Water 250 ml @ 250 mls/hr IV Q24H [facility] Rx#:[id number] Oral 490 640 GI Tube Flush 200 1200 Output: Void Amount [id number] Other: Meal Dinner Breakfast Percent of Meal Consumed 60 100% Feeding Ability Independent Independent Urine Appearance Clear Clear Urine Color Yellow Yellow Urine Odor Normal Normal OBJ DATA Labs 01/14/23 05:25 01/14/23 05:25 Labs: Abnormal Lab Results 01/14/23 01/14/23 01/13/23 05:25 05:25 16:48 RBC 3.53 L Hgb 7.9 L Hct 28.7 L POC Hct MCH 22.4 L MCHC 27.5 L RDW 20.2 H MPV 8.6 L Immature Gran % (Auto) 0.8 H [place] % (Auto) Lymph # (Auto) 1.09 L D-Dimer VBG Lactic Acid < 0.2 L POC BUN BUN 21 H POC Creatinine Alkaline Phosphatase 561 H Albumin 2.3 L Albumin/Globulin Ratio 0.6 L Procalcitonin 01/13/23 01/13/23 01/13/23 06:06 06:03 06:03 RBC 3.86 L Hgb 8.6 L Hct 31.2 L POC Hct 30.0 L MCH 22.3 L MCHC 27.6 L RDW 20.2 H MPV 8.3 L Immature Gran % (Auto) 0.6 H [place] % (Auto) 13.8 H Lymph # (Auto) 1.23 L D-Dimer 1.86 H VBG Lactic Acid POC BUN 25 H BUN POC Creatinine 1.3 H Alkaline Phosphatase Albumin Albumin/Globulin Ratio Procalcitonin 01/13/23 06:02 RBC Hgb Hct POC Hct MCH MCHC RDW MPV Immature Gran % (Auto) [place] % (Auto) Lymph # (Auto) D-Dimer VBG Lactic Acid POC BUN BUN POC Creatinine Alkaline Phosphatase Albumin Albumin/Globulin Ratio Procalcitonin 0.82 H Meds: Medications Acetaminophen (Acetaminophen 325 Mg Tablet) 650 mg PO Q6HP PRN; Protocol PRN Reason: Per Pain Protocol/Fever > 101 Last Admin: 01/13/23 19:10 Dose: 650 mg Albuterol/Ipratropium (Ipratropium/Albuterol 3 Ml Ampul.Neb) 3 ml NEB Q4HRT PRN PRN Reason: Wheezing Ceftriaxone Sodium (Ceftriaxone 1 Gm Vial) 1 gm IV Q24H [facility] Last Admin: 01/14/23 08:39 Dose: 1 gm Docusate Sodium (Docusate Sodium 100 Mg Capsule) 100 mg PO BID [facility] Last Admin: 01/14/23 08:01 Dose: 100 mg Enoxaparin Sodium (Enoxaparin 40 Mg/0.4 Ml Syringe) 40 mg SQ DAILY [facility] Last Admin: 01/14/23 08:01 Dose: 40 mg Guaifenesin (Guaifenesin/Dextromethorphan 5ml Ud Cup) 10 ml PO Q4HP PRN PRN Reason: Cough Last Admin: 01/13/23 19:14 Dose: 10 ml Sodium Chloride (Sodium Chloride 0.9%) 1,000 mls @ 100 mls/hr IV .Q10H [facility] Last Admin: 01/14/23 03:28 Dose: 100 mls/hr Azithromycin 500 mg/ Dextrose 250 mls @ 250 mls/hr IV Q24H [facility]; Protocol Stop: 01/15/23 10:59 Last Infusion: 01/14/23 11:28 Dose: Infused Lamotrigine (Lamotrigine 100 Mg Tablet) 200 mg PO DAILY [facility] Last Admin: 01/14/23 08:01 Dose: 200 mg Morphine Sulfate (Morphine 4 Mg/Ml Vial) 2 mg IV Q4HP PRN; Protocol PRN Reason: Per Pain Protocol Olanzapine (Olanzapine 5 Mg Tablet) 15 mg PO QDAY [facility] Last Admin: 01/14/23 08:01 Dose: 15 mg Ondansetron HCl (Ondansetron 4 Mg/2 Ml Vial) 4 mg IV Q6HP PRN PRN Reason: Nausea And Vomiting Oxycodone HCl (Oxycodone Hcl 5 Mg Tablet) 5 mg PO Q4HP PRN; Protocol PRN Reason: Per Pain Protocol Polyethylene Glycol (Polyethylene Glycol 3350 17 Gm Packet) 17 gm PO DAILYP PRN PRN Reason: Constipation Senna (Sennosides 1 Tablet) 2 tab PO HS [facility] Last Admin: 01/13/23 20:45 Dose: Not Given Sodium Chloride (0.9 % Sodium Chloride 10 Ml Syringe) 10 ml IV Q8 [facility] Last Admin: 01/14/23 06:22 Dose: Not Given Trazodone HCl (Trazodone Hcl 50 Mg Tablet) 25 mg PO HSP PRN PRN Reason: Insomnia A/P Narrative A/P Narrative: Assessment and Plans: *PNA: -Serial lactic acid, Procalcitonin level -Blood culture, no growth to date -cbc w/ auto diff in the morning to trend WBC -Rocephin , Zithromax *Acute hypoxic respiratory failure: -Supplemental oxygen therapy as needed to achieve spo2>=92% *Renal cell 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: Need oncology team to follow up either inpatient or outpatient *Bipolar depression with anxiety: Lamotrigine , Olanzapine *Generalized weakness/deconditioning: -PT/OT -CM for placement needs *CKD II-III: *Anemia, acute on chronic: Monitor H&H *GERD: Continue PPI *ppx: Lovenox Code status: Stock Pitcher Spent With Patient Time: Total time spent is greater than 50% in coordination of care (as documented) at patient's floor/unit and/or counseling patient: QUALITY VTE Deep Vein Thrombosis/Pulmonary Embolism Present on Admission: No
--- NOTE | 2023-01-14 12:46 | Discharge Summary ---
Discharge Provider Provider IMPORTANT FOLLOW-UP INFORMATION FOR PCP: Patient information: Note initiated : 01/14/23 at 12:44 pm Service Date, if different from initiated Date: [] Patient: Eric Fuentes 62 y/o M admitted on 01/13/23 for cough. Chief Complaint: [] Date of admission: 01/13/23 16:13 Discharge date: 01/15/23 Primary care physician: Anuj Maki Consults: 01/13/23 Consult to Physician [CONS] Stat Comment: Consulting Provider: Hugo Rangel Reason For Exam: Physician to Consult COURSE Hospital Course Hospital course: Mr. Fuentes is a 62 year old M history of recently diagnosed renal cell carcinoma, bipolar disorder, general anxiety disorder, presenting with 4 weeks history of progressively worsening general body weakness, nonproductive cough, shortness of breath, and diaphoresis. He was being diagnosed with renal cell carcinoma in September 2022, and he is in the prior cyst of chemotherapy. Over the past 4 weeks, patient is experiencing progressively worsening general body weakness, shortness of breath, nonproductive cough, and diaphoresis. He presented to our ED today for further evaluations due to the worsening nature of his symptoms. Vital signs significant for oxygen desaturations when he ambulates to the point that he would require up to 2 L/min nasal cannula oxygen's. Otherwise the rest of the vital signs were within normal limits. Labs significant for lack of leukocytosis with WBC 6.3. COVID, influenza a and B, RSV screening are negative. D-dimer elevated at 1.86. Procalcitonin level 0.82. Chest x-ray and CT angiogram of the chest were performed showing negative for pulmonary embolism, negative for focal infiltrate, but positive for disseminated parenchymal metastasis. It also showing enhancing mass in the left kidney consistent with the history of the renal cell carcinoma. There is also a very large hepatic mass that could be a giant hemangioma but necrotic neoplasm suspected. ER physician tried to contact to [facility] where his oncology team is located in the would be okay to be consulted for the care of the patient's but there hospitalist refused to admit the patient. I would like to offer to start therapy for the patient here and with encouraged or suggest to transfer the care to [facility] if the patient's conditions continue to deteriorate. /: There was no major overnight events. He is currently on 2 L/min nasal cannula oxygen. Fever with Tmax 38.6 C overnight. Cultures no growth to date. His degree of shortness of breath has improved. He is coming of nonproductive c ough. He denies any respiratory wheezings. He denies any chest pain. Continue supplemental oxygen therapy as needed to keep SPO2 above or equal to 92%. Continue IV fluid, Rocephin, azithromycin for bacterial pneumonia. Continue to monitor blood culture results. Continue to work with physical therapy for placement planning, tentatively he would go home tomorrow with home health physical therapy. He also need to follow-up with oncology outpatient for the treatment of metastatic renal cell carcinoma. Overall condition is guarded. 4/3 Patient continues to require oxygen. Unable to wean off. We will have RT assess for home oxygen needs. Otherwise is feeling little bit better. Does have a continued cough and shortness of breath. 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: -f/u with oncology team *Bipolar depression with anxiety: -Lamotrigine , Olanzapine *Generalized weakness/deconditioning: -PT/OT *CKD II-III: *Anemia, acute on chronic: likely 2/2 metastatic CA + dilution from IVF's Discharge diagnosis: His weakness pneumonia metastatic kidney ca Time Spent with Patient Time attestation: Total time spent providing and/or coordinating discharge services: Time spent: Greater than 30 minutes EXAM Constitutional Vitals: Temp Pulse Resp BP Pulse Ox O2 Del Method O2 Flow Rate 99.6 F H 108 H 22 116/70 94 Nasal Cannula 2 01/14/23 12:00 01/14/23 12:00 01/14/23 12:00 01/14/23 12:00 01/14/23 12:00 01/14/23 12:00 01/14/23 12:00 Discharge Data Data Completed and Pending Labs on day of discharge: Labs from last 24 hours 01/14/23 01/14/23 01/13/23 05:25 05:25 16:48 WBC 6.3 RBC 3.53 L Hgb 7.9 L Hct 28.7 L MCV 81.3 MCH 22.4 L MCHC 27.5 L RDW 20.2 H Plt Count 275 MPV 8.6 L Immature Gran % (Auto) 0.8 H Neut % (Auto) 69.4 Lymph % (Auto) 17.4 [place] % (Auto) 11.6 Eos % (Auto) 0.2 Baso % (Auto) 0.6 Lymph # (Auto) 1.09 L [place] # (Auto) 0.73 Eos # (Auto) 0.01 Baso # (Auto) 0.04 Immature Gran # 0.05 Absolute Neutrophils 4.35 VBG Lactic Acid < 0.2 L Sodium 137 Potassium 4.7 Chloride 102 Carbon Dioxide 25 Anion Gap 10.0 BUN 21 H Creatinine 1.2 GFR Calculation 65 Glucose 94 Calcium 9.6 Total Bilirubin 0.5 AST 23 ALT 22 Alkaline Phosphatase 561 H Total Protein 5.9 Albumin 2.3 L Globulin 3.6 Albumin/Globulin Ratio 0.6 L Discharge Plan Patient/Caregiver Discharge Instructions Activity: increase activity as tolerated Diet: Regular Diet Activity Restrictions/Additional Instructions: Follow-up with your oncologist in 3 to 10 days. Will need home oxygen for metastatic cancer to lungs. Prescriptions: New cefdinir 300 mg capsule 300 mg PO BID Qty: 7 0RF Continued lamotrigine 200 mg tablet 200 mg PO QDAY olanzapine 10 mg tablet 15 mg PO QDAY omeprazole 20 mg Tablet,Delayed Release (Dr/Ec) 20 mg PO QDAY Osteo Bi-Flex 500 mg PO BID Hzo-Q-Eeabdyr-10 100 mg PO QDAY ferrous sulfate 65 mg PO QDAY bupropion HCl 300 mg PO QDAY ondansetron 8 mg tablet,disintegrating 8 mg PO Q8HP PRN (Reason: Nausea) Follow Up Plan Follow up with: Anuj Maki MD [Primary Care Provider] - Patient Disposition: Home Health Service Prognosis: Undetermined Discharge Orders: Discharge Order (Routine); Ordered 01/15/23 Ordered By: Narinder Powell [facility] VTE Deep Vein Thrombosis/Pulmonary Embolism Present on Admission: No
[2023-01-14] MEDS: ACETAMINOPHEN 325 MG TABLET PO PRN (13:28)
[2023-01-14] MEDS: SENNOSIDES 1 TABLET PO SCH (20:53)
[2023-01-14] MEDS: POLYETHYLENE GLYCOL 3350 17 GM PACKET PO PRN (21:40)
[2023-01-15] MEDS: 0.9 % SODIUM CHLORIDE 10 ML SYRINGE IV SCH (05:48)
[2023-01-15 06:57] LABS: Hematocrit 27.1 % (40.1-51.0); Hemoglobin 7.5 g/dL (13.7-17.5)
[2023-01-15] MEDS ORDERED: FUROSEMIDE 20 MG/2 ML VIAL IV ONE (07:23)
--- NOTE | 2023-01-15 07:25 | Internal Med Progress Note ---
SUBJECTIVE Subjective Patient information: Note initiated : 01/15/23 at 7:18 am Service Date, if different from initiated Date: [] Patient: Eric Fuetnes a 62 y/o M admitted on 01/13/23 for cough. Chief Complaint: [] Interval history: Mr. Fuentes is a 62 year old M history of recently diagnosed renal cell carcinoma, bipolar disorder, general anxiety disorder, presenting with 4 weeks history of progressively worsening general body weakness, nonproductive cough, shortness of breath, and diaphoresis. He was being diagnosed with renal cell carcinoma in September 2022, and he is in the prior cyst of chemotherapy. Over the past 4 weeks, patient is experiencing progressively worsening general body weakness, shortness of breath, nonproductive cough, and diaphoresis. He presented to our ED today for further evaluations due to the worsening nature of his symptoms. Vital signs significant for oxygen desaturations when he ambulates to the point that he would require up to 2 L/min nasal cannula oxygen's. Otherwise the rest of the vital signs were within normal limits. Labs significant for lack of leukocytosis with WBC 6.3. COVID, influenza a and B, RSV screening are negative. D-dimer elevated at 1.86. Procalcitonin level 0.82. Chest x-ray and CT angiogram of the chest were performed showing negative for pulmonary embolism, negative for focal infiltrate, but positive for disseminated parenchymal metastasis. It also showing enhancing mass in the left kidney consistent with the history of the renal cell carcinoma. There is also a very large hepatic mass that could be a giant hemangioma but necrotic neoplasm suspected. ER physician tried to contact to [facility] where his oncology team is located in the would be okay to be consulted for the care of the patient's but there hospitalist refused to admit the patient. I would like to offer to start therapy for the patient here and with encouraged or suggest to transfer the care to [facility] if the patient's conditions continue to deteriorate. 01/14: There was no major overnight events. He is currently on 2 L/min nasal cannula oxygen. Fever with Tmax 38.6 C overnight. Cultures no growth to date. His degree of shortness of breath has improved. He is coming of nonproductive cough. He denies any respiratory wheezings. He denies any chest pain. Continue supplemental oxygen therapy as needed to keep SPO2 above or equal to 92%. Continue IV fluid, Rocephin, azithromycin for bacterial pneumonia. Continue to monitor blood culture results. Continue to work with physical therapy for placement planning, tentatively he would go home tomorrow with home health physical therapy. He also need to follow-up with oncology outpatient for the treatment of metastatic renal cell carcinoma. Overall condition is guarded. 4/3 Patient continues to require oxygen. Unable to wean off. We will have RT assess for home oxygen needs. Otherwise is feeling little bit better. Does have a continued cough and shortness of breath. Review of Systems: denies headache/fever/chills/nausea/vomiting/chest or abdominal pain/cough/dyspnea/diarrhea. Otherwise see above. PHYSICAL EXAM General: Alert, Awake, No acute Distress Eyes/N/T: EOMI, no scleral icterus, Head/Neck: neck supple, full ROM, CV: RRR, No murmurs, Pulm: Decreased BS b/l, no wheezing/rhonchi/rales, no respiratory distress Abd: soft, nontender, +BS x4 Ext: no clubbing/cyanosis/edema, nontender Neuro: Alert, no focal deficits, moves all extremities,, sensations intact b/l upper/lower Psychiatric: Skin: warm/dry, normal color Constitutional Vitals: Vital Signs Temp Pulse Resp BP Pulse Ox O2 Del Method O2 Flow Rate 98.7 F 90 20 118/67 90 Nasal Cannula 3 01/15/23 03:56 01/15/23 03:56 01/15/23 03:56 01/15/23 03:56 01/15/23 03:56 01/15/23 03:56 01/15/23 03:56 Period Temp Pulse Resp BP Sys/Santillan Pulse Ox O2 Del Method O2 Flow Rate Last 24 Hr 97.4 F-99.6 F 84-108 18-24 104-118/62-70 90-94 Nasal Cannula- Nasal Cannula 2-3 Intake and Output 01/14/23 01/15/23 01/15/23 19:59 03:59 11:59 Intake Total 1788 1678 Output Total 300 1300 600 Balance 1488 378 -600 Weight 71.469 kg Intake & Output: Intake & Output 01/14/23 01/15/23 01/15/23 19:59 03:59 11:59 Intake Total 1788 1678 Output Total 300 1300 600 Balance 1488 378 -600 Weight 71.469 kg Intake: IV 988 978 Sodium Chloride 0.9% 1,000 ml @ 988 978 100 mls/hr IV .Q10H [facility] Rx#: [id number] Oral 700 GI Tube Flush 800 Output: Void Amount 300 1300 600 Other: Meal Lunch Percent of Meal Consumed 100% Feeding Ability Independent Urine Appearance Clear Clear Clear Urine Color Yellow Bright Yellow Bright Yellow Pale Urine Odor Normal Normal OBJ DATA Labs 01/15/23 05:55 01/14/23 05:25 Labs: Abnormal Lab Results 01/15/23 01/14/23 01/14/23 05:55 05:25 05:25 RBC 3.53 L Hgb 7.5 L 7.9 L Hct 27.1 L 28.7 L POC Hct MCH 22.4 L MCHC 27.5 L RDW 20.2 H MPV 8.6 L Immature Gran % (Auto) 0.8 H [place] % (Auto) Lymph # (Auto) 1.09 L D-Dimer VBG Lactic Acid POC BUN BUN 21 H POC Creatinine Alkaline Phosphatase 561 H Albumin 2.3 L Albumin/Globulin Ratio 0.6 L Procalcitonin 01/13/23 01/13/23 01/13/23 16:48 06:06 06:03 RBC 3.86 L Hgb 8.6 L Hct 31.2 L POC Hct 30.0 L MCH 22.3 L MCHC 27.6 L RDW 20.2 H MPV 8.3 L Immature Gran % (Auto) 0.6 H [place] % (Auto) 13.8 H Lymph # (Auto) 1.23 L D-Dimer VBG Lactic Acid < 0.2 L POC BUN 25 H BUN POC Creatinine 1.3 H Alkaline Phosphatase Albumin Albumin/Globulin Ratio Procalcitonin 01/13/23 01/13/23 06:03 06:02 RBC Hgb Hct POC Hct MCH MCHC RDW MPV Immature Gran % (Auto) [place] % (Auto) Lymph # (Auto) D-Dimer 1.86 H VBG Lactic Acid POC BUN BUN POC Creatinine Alkaline Phosphatase Albumin Albumin/Globulin Ratio Procalcitonin 0.82 H Meds: Medications Acetaminophen (Acetaminophen 325 Mg Tablet) 650 mg PO Q6HP PRN; Protocol PRN Reason: Per Pain Protocol/Fever > 101 Last Admin: 01/14/23 13:28 Dose: 650 mg Albuterol/Ipratropium (Ipratropium/Albuterol 3 Ml Ampul.Neb) 3 ml NEB Q4HRT PRN PRN Reason: Wheezing Bupropion HCl (Bupropion 150 Mg Tab.Xl.24h) 300 mg PO DAILY [facility] Ceftriaxone Sodium (Ceftriaxone 1 Gm Vial) 1 gm IV Q24H [facility] Last Admin: 01/14/23 08:39 Dose: 1 gm Docusate Sodium (Docusate Sodium 100 Mg Capsule) 100 mg PO BID [facility] Last Admin: 01/14/23 20:53 Dose: 100 mg Enoxaparin Sodium (Enoxaparin 40 Mg/0.4 Ml Syringe) 40 mg SQ DAILY [facility] Last Admin: 01/14/23 08:01 Dose: 40 mg Guaifenesin (Guaifenesin/Dextromethorphan 5ml Ud Cup) 10 ml PO Q4HP PRN PRN Reason: Cough Last Admin: 01/13/23 19:14 Dose: 10 ml Sodium Chloride (Sodium Chloride 0.9%) 1,000 mls @ 100 mls/hr IV .Q10H [facility] Last Admin: 01/14/23 23:08 Dose: 100 mls/hr Azithromycin 500 mg/ Dextrose 250 mls @ 250 mls/hr IV Q24H [facility]; Protocol Stop: 01/15/23 10:59 Last Infusion: 01/14/23 11:28 Dose: Infused Lamotrigine (Lamotrigine 100 Mg Tablet) 200 mg PO DAILY [facility] Last Admin: 01/14/23 08:01 Dose: 200 mg Morphine Sulfate (Morphine 4 Mg/Ml Vial) 2 mg IV Q4HP PRN; Protocol PRN Reason: Per Pain Protocol Olanzapine (Olanzapine 5 Mg Tablet) 15 mg PO QDAY [facility] Last Admin: 01/14/23 08:01 Dose: 15 mg Omeprazole (Omeprazole 20 Mg Capsule) 20 mg PO ACB [facility] Ondansetron HCl (Ondansetron 4 Mg/2 Ml Vial) 4 mg IV Q6HP PRN PRN Reason: Nausea And Vomiting Oxycodone HCl (Oxycodone Hcl 5 Mg Tablet) 5 mg PO Q4HP PRN; Protocol PRN Reason: Per Pain Protocol Polyethylene Glycol (Polyethylene Glycol 3350 17 Gm Packet) 17 gm PO DAILYP PRN PRN Reason: Constipation Last Admin: 01/14/23 21:40 Dose: 17 gm Senna (Sennosides 1 Tablet) 2 tab PO HS ANAY Last Admin: 01/14/23 20:53 Dose: 2 tab Sodium Chloride (0.9 % Sodium Chloride 10 Ml Syringe) 10 ml IV Q8 [facility] Last Admin: 01/15/23 05:48 Dose: Not Given Trazodone HCl (Trazodone Hcl 50 Mg Tablet) 25 mg PO HSP PRN PRN Reason: Insomnia A/P Narrative A/P Narrative: Assessment and Plans: *PNA: -Serial lactic acid, Procalcitonin level -Blood culture, no growth to date -cbc w/ auto diff in the morning to trend WBC -Rocephin , Zithromax *Sepsis: -afebrile now *Acute hypoxic respiratory failure: 2/2 pna + likely more causative is disseminated parenchymal mets -Supplemental oxygen therapy as needed to achieve spo2>=92% -on 2-3L NC *Renal cell 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: -Need oncology team to follow up either inpatient or outpatient *Bipolar depression with anxiety: Lamotrigine , Olanzapine *Generalized weakness/deconditioning: -PT/OT -CM for placement needs *CKD II-III: *Anemia, acute on chronic: likely 2/2 metastatic CA + dilution (stop IVF's, lasix x1) -Monitor H&H *GERD: Continue PPI *ppx: Lovenox Code status: Foundry Helper Spent With Patient Time: Total time spent is greater than 50% in coordination of care (as documented) at patient's floor/unit and/or counseling patient: Subsequent: Total time with patient: 35 - 49 minutes [facility] VTE Deep Vein Thrombosis/Pulmonary Embolism Present on Admission: No
[2023-01-15] MEDS ORDERED: OMEPRAZOLE 20 MG CAPSULE PO SCH (07:30)
[2023-01-15] MEDS: ENOXAPARIN 40 MG/0.4 ML SYRINGE SQ SCH (08:53)
[2023-01-15] MEDS: OLANZapine 5 MG TABLET PO SCH (08:53)
[2023-01-15] MEDS: lamoTRIgine 100 MG TABLET PO SCH (08:53)
[2023-01-15] MEDS: DOCUSATE SODIUM 100 MG CAPSULE PO SCH (08:53)
[2023-01-15] MEDS: POLYETHYLENE GLYCOL 3350 17 GM PACKET PO PRN (09:00)
[2023-01-15] MEDS ORDERED: buPROPion 150 MG TAB.XL.24H PO SCH (09:00)
[2023-01-15] MEDS: cefTRIAXone 1 GM VIAL IV SCH (09:00)
[2023-01-15] MEDS: AZITHROMYCIN 500 MG in DEXTROSE 5% IN WATER 250 ML IV SCH (11:19)
--- OUTSIDE RECORDS SUMMARY | 2023-01-15 15:47 | External Medical Summary ---
Author Name EMMA HARRY Address [address] [place] [address] 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 37430976 Problem Bipolar disorder, in full remission, most recent episode manic F31.74 Active 00793946 Problem Nevus, non-neoplastic I78.1 Active 851994124 Problem Chronic kidney disease, stage II (mild) N18.2 Active 927758686 ALLERGIES Substance Reaction Event Type Date Status bees hives Non Drug Allergy February, Active ENCOUNTERS Encounter Location Date Diagnosis [facility] [address] [place] [address] February, Encounter for general adult medical examination with abnormal findings Z00.01 ; Chronic kidney disease, stage II (mild) N18.2 ; Bipolar disorder, in full remission, most recent episode manic F31.74 ; Nevus, non-neoplastic I78.1 ; Family history of colon cancer in mother Z80.0 and 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 [facility] [address] [place] [address] February, [facility] [address] [place] [address] Jan, Encounter for general adult medical examination with abnormal findings Z00.[address] [address] 18 Nov, 2019 Olecranon bursitis of left elbow M70.22 and BMI 20.0-20.9, adult Z68.[address] [address] Apr, Lower urinary tract symptoms R39.9 ; 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 and BMI 20.0-20.9, adult Z68.[address] [address] Jan, Neuropathy G62.9 and BMI 21.0-21.9, adult Z68.[address] [address] Jan, [address] [address] Jan, Neuropathy G62.9 and BMI 21.0-21.9, adult Z68.[address] [address] Oct, Encounter for general adult medical examination with abnormal findings Z00.01 ; Encounter for screening for malignant neoplasm of colon Z12.11 ; Bipolar disorder, in full remission, most recent episode manic F31.74 ; Nevus, non-neoplastic I78.1 ; Chronic kidney disease, stage II (mild) N18.2 ; Family history of colon cancer in mother Z80.0 and BMI 21.0-21.9, adult Z68.[address] [address] 17 Sep, 2018 Encounter for therapeutic drug level monitoring Z51.81 ; Encounter for general adult medical examination with abnormal findings Z00.01 ; Screening for prostate cancer Z12.5 and Encounter for HCV screening test for low risk patient Z11.[address] [address] Jul, Bipolar disorder, in full remission, most recent episode manic F31.74 and BMI 21.0-21.9, adult Z68.[address] [address] Dec, Encounter for general adult medical examination with abnormal findings Z00.[address] [address] Nov, [address] [address] 08 Oct, 2017 Adult general medical exam Z00.00 ; Bipolar disorder, in full remission, most recent episode manic F31.74 ; Chronic kidney disease, stage II (mild) N18.2 and BMI 20.0-20.9, adult Z68.[address] [address] Aug, [address] [address] February, Bipolar disorder, in full remission, most recent episode manic F31.74 and Body mass index (BMI) 20.0-20.9, adult Z68.[address] [address] 04 Oct, 2016 Encounter for general adult medical examination with abnormal findings Z00.01 ; Bipolar disorder, in full remission, most recent episode manic F31.74 and Body mass index (BMI) 20.0-20.9, adult Z68.[address] [address] 13 Apr, 2016 Nevus, non-neoplastic I78.1 and Body mass index (BMI) 21.0-21.9, adult Z68.[address] [address] 19 Oct, 2015 Encounter for general adult medical examination without abnormal findings Z00.00 ; Nevus, non-neoplastic I78.1 and Body mass index (BMI) 20.0-20.9, adult Z68.[address] [address] Sep, Bipolar disorder, in full remission, most recent episode manic F31.[address] [address] Sep, Worries R45.82 and Palpitations R00.[address] [address] Mar, Dysphagia, pharyngeal phase 787.23 and Bipolar I disorder, most recent episode (or current) depressed, in full remission 296.[address] [address] Dec, Bipolar affective disorder, manic, in partial remission 296.[address] [place] [address] Sep, [facility] [address] [place] [address] Sep, Routine general medical examination at health care facility V70.0 and Bipolar affective disorder, mixed, in full remission 296.66 IMMUNIZATIONS Vaccine Route Administration Date Status Flu Vaccine Unknown Jul 18, 2017 Administered Influenza Unknown Jul 18, 2017 Administered SOCIAL HISTORY Qualifiers Date Never Smoker REASON FOR REFERRAL FUNCTIONAL STATUS PLAN OF CARE Activity Details VITAL SIGNS Height 74.5 in 2020-02-17 Height 74.5 in 2019-12-02 Height 74.5 in 2019-05-13 Height 74.5 in 2019-02-06 Height 74.5 in 2019-01-23 Height 74.5 in 2018-11-05 Height 74.5 in 2018-07-15 Height 74.5 in 2017-10-22 Height 74.5 in 2017-03-13 Height 74.5 in 2016-10-18 Height 74.5 in 2016-04-26 Height 74.5 in 2015-11-02 Height 74.5 in 2015-10-06 Height 74.5 in 2015-09-16 Height 74.5 in 2015-04-05 Height 74.5 in 2014-12-21 Height 74.5 in 2014-09-28 Weight 162 lbs 2020-02-17 Weight 162.8 lbs 2019-12-02 Weight 164.0 lbs 2019-05-13 Weight 169.0 lbs 2019-02-06 Weight 170 lbs 2019-01-23 Weight 166.8 lbs 2018-11-05 Weight 169.8 lbs 2018-07-15 Weight 159.8 lbs 2017-10-22 Weight 160.0 lbs 2017-03-13 Weight 160.2 lbs 2016-10-18 Weight 166.2 lbs 2016-04-26 Weight 162.0 lbs 2015-11-02 Weight 156.8 lbs 2015-10-06 Weight 163.8 lbs 2015-09-16 Weight 160.8 lbs 2015-04-05 Weight 166.0 lbs 2014-12-21 Weight 179 lbs 2014-09-28 BMI 20.52 kg/m2 2020-02-17 BMI 20.62 kg/m2 2019-12-02 BMI 20.77 kg/m2 2019-05-13 BMI 21.41 kg/m2 2019-02-06 BMI 21.53 kg/m2 2019-01-23 BMI 21.13 kg/m2 2018-11-05 BMI 21.51 kg/m2 2018-07-15 BMI 20.24 kg/m2 2017-10-22 BMI 20.27 kg/m2 2017-03-13 BMI 20.29 kg/m2 2016-10-18 BMI 21.05 kg/m2 2016-04-26 BMI 20.52 kg/m2 2015-11-02 BMI 19.86 kg/m2 2015-10-06 BMI 20.75 kg/m2 2015-09-16 BMI 20.37 kg/m2 2015-04-05 BMI 21.03 kg/m2 2014-12-21 BMI 22.67 kg/m2 2014-09-28 Heart Rate 70 2020-02-17 Heart Rate 68 2019-12-02 Heart Rate 56 2019-05-13 Heart Rate 69 2019-02-06 Heart Rate 60 2019-01-23 Heart Rate 82 2018-11-05 Heart Rate 64 2018-07-15 Heart Rate 70 2017-10-22 Heart Rate 68 2017-03-13 Heart Rate 59 2016-10-18 Heart Rate 54 2016-04-26 Heart Rate 68 2015-11-02 Heart Rate 76 2015-10-06 Heart Rate 67 2015-09-16 Heart Rate 69 2015-04-05 Heart Rate 64 2014-12-21 Heart Rate 62 2014-09-28 Oximetry 96 2019-12-02 Oximetry 97 2019-05-13 Oximetry 96 2019-02-06 Oximetry 100 2019-01-23 Oximetry 97 2018-11-05 Oximetry 98 2018-07-15 Oximetry 98 2017-10-22 Oximetry 97 2017-03-13 Oximetry 100 2016-10-18 Oximetry 100 2016-04-26 Oximetry 100 2015-11-02 Oximetry 99 2015-10-06 Oximetry 100 2015-09-16 Oximetry 99 2015-04-05 Oximetry 99 2014-12-21 Oximetry 100 2014-09-28 Temperature 99.2 degrees Fahrenheit Blood pressure systolic 100 Blood pressure diastolic 60 2020-02 MEDICATIONS Medication Instructions Dosage Frequency Start Date End Date Duration Status buPROPion HCl ER (XL) 300 MG TK 1 T PO QD 30 Active ZyPREXA 15 MG Orally daily 1 tablet 24h Active LaMICtal 200 MG Orally Qday 1 tablet 30 day(s) Active Triple Flex 500-400-125 MG Orally daily 2 tablet with meals 24h Active Fish Oil 1000 MG Orally Once a day 1 capsule 24h 30 day(s) Active PROCEDURES Procedure Date Ordered Result Body Site BP SCR PRFRM RCMDD DEFIND SCR INTVL February 06, 2019 DOC MEDS VERIFIED W/PT OR RE Nov 05, 2018 BMI<30 AND >=22 CALC & DOCU Dec 02, 2019 BP SCR PRFRM RCMDD DEFIND SCR INTVL Jul 15, 2018 LDL-C <100 MG/DL Nov 05, 2018 BP SCR PRFRM RCMDD DEFIND SCR INTVL January 23, 2019 BMI<30 AND >=22 CALC & DOCU Oct 22, 2017 TOBACCO NON-USER Jul 15, 2018 DOC MEDS VERIFIED W/PT OR RE February 06, 2019 TOBACCO NON-USER January 23, 2019 DOC MEDS VERIFIED W/PT OR RE Oct 22, 2017 BP SCR PRFRM RCMDD DEFIND SCR INTVL Dec 02, 2019 BP SCR PRFRM RCMDD DEFIND SCR INTVL May 13, 2019 TOBACCO NON-USER Dec 02, 2019 LIPID PANEL Nov 02, 2015 DOC MEDS VERIFIED W/PT OR RE Dec 02, 2019 BP SCR PRFRM RCMDD DEFIND SCR INTVL Oct 22, 2017 DOC MEDS VERIFIED W/PT OR RE May 13, 2019 DOC PT HAS ACTIV DX DEPR/BIPOLR D/O Nov 05, 2018 FLU IMMUNIZE ORDER/ADMIN Dec 02, 2019 BMI<30 AND >=22 CALC & DOCU May 13, 2019 DOC PT HAS ACTIV DX DEPR/BIPOLR D/O January 23, 2019 PT NOT ID UNHLTHY ALC USR SCR ALC U Nov 05, 2018 Pt scrn tbco id as non user February 06, 2019 BP SCR PRFRM RCMDD DEFIND SCR INTVL Nov 05, 2018 TOBACCO NON-USER Nov 05, 2018 Pt scrn tbco id as non user Nov 05, 2018 BMI<30 AND >=22 CALC & DOCU February 06, 2019 TOBACCO NON-USER February 06, 2019 COLORECTAL CA SCREEN DOC REV Oct 22, 2017 Pt scrn tbco id as non user January 23, 2019 HG A1C LEVEL LT 7.0% Nov 05, 2018 Pt scrn tbco id as non user Jul 15, 2018 DOC MEDS VERIFIED W/PT OR RE Jul 15, 2018 FLU IMMUNIZE ORDER/ADMIN Nov 05, 2018 BMI<30 AND >=22 CALC & DOCU January 23, 2019 Pt scrn tbco id as non user Dec 02, 2019 SUICIDE RISK ASSESSED Jul 15, 2018 DOC PT HAS ACTIV DX DEPR/BIPOLR D/O Dec 02, 2019 DOC PT HAS ACTIV DX DEPR/BIPOLR D/O Oct 22, 2017 VENIPUNCT, ROUTINE Oct 18, 2016 BMI<30 AND >=22 CALC & DOCU Nov 05, 2018 VENIPUNCT, ROUTINE Nov 02, 2015 BMI<30 AND >=22 CALC & DOCU Jul 15, 2018 DOC MEDS VERIFIED W/PT OR RE January 23, 2019 TOBACCO NON-USER Oct 22, 2017 RESULTS Name Result Date Reference Range Hgb A1c with MBG Estimation 2020-02-12 HbA1c 5.3 4.0-6.0 eAG 105 LIPID PANEL 2020-02-12 CHOL 114 <200 HDL 67 >40 LDL 41 SEE CHART NON HDL CHOL 47 LDL TARGET+30 TRIG 32 <150 PSA 2020-02-12 PSA 2.56 0.0-3.5 CMP w/GFR 2020-02-12 A/G RATIO 1.2 1.0-2.3 ALB 4.0 3.2-5.2 ALK PHOS 76 39-117 ALT/SGPT 15 0-40 GAP 12.0 8-16 AST/SGOT 17 0-37 BILI,T 0.3 0.0-1.0 BUN,SERUM 15 6-20 CA 9.5 8.6-10.4 CL 101 96-108 CO2 27 22-30 CREAT,SERUM 1.3 0.7-1.2 GFR 61 GLOB 3.3 2.2-3.7 GLU 87 70-105 K 4.2 3.3-5.1 TOT PROT 7.3 5.9-8.4 NA 140 133-145 UA w/MICRO EXAM 2019-05-22 ADD CULTURE? NO APPEARANCE CLEAR BACTERIA 0 0 BILI NEG NEG BLOOD NEG <0.03 COLOR STRAW GLU NEGATIVE NEG KETONE NEG NEG LEUK ESTERASE NEG NEG MUCUS FEW 0 NITRITE NEG NEG PH,URINE 6.0 5.0-9.0 PROT NEG NEG SG 1.005 1.000-1.035 UROBIL NEG NEG Urinalysis 2019-05-22 Color Appearance SG PH, Urine Protein Glucose Ketone Urobil Bili Blood Nitrite Leuk Esterase RBC WBC Squam Cells Trans Cells Bacteria Add Culture? Mucus PSA 2019-05-22 PSA 2.70 0.0-3.5 INTERPRET 2019-02-13 INTERPRET HIV 1/2 AG/AB 4 2019-02-13 HIV 1 ANTIBODY TNP HIV 2 ANTIBODY TNP HIV AG/AB, 4TH NON-REACTIVE NON-REACTIVE HIV1 RNA,QL TMA TNP Serum Protein Electrophoresis 2019-02-13 A/G RATIO SEP 1.4 0.9-1.7 ALB SEP 3.94 3.1-4.7 KKTTE-6-FOKS 0.22 0.1-0.5 QXHRX-1-XRAX 0.75 0.4-1.2 BETA GLOB 0.95 0.6-1.2 GAMMA GLOB 0.83 0.5-1.7 GLOBULIN SEP 2.8 2.4-3.6 TP SEP 6.7 5.9-8.4 HIV 1&2 AB EIA W/REFLEXES 2019-02-17 HIV 1 AB, EIA HIV 2 AB TSH 2019-02-13 TSH 1.24 0.27-5.01 CBC/PLT 2019-02-13 HCT 41.3 41.0-55.0 HGB 13.6 13.5-16.5 MCH 32.0 26.0-34.0 MCHC 33.0 31.0-36.0 MCV 96.9 80.0-100.0 MPV 8.0 7.4-10.[address] 208 140-440 RBC 4.26 4.50-5.90 RDW 13.2 11.5-14.5 WBC 4.4 4.5-11.0 EMG Bilateral Lower Extremities 2019-04-15 4 GLUCOSE,FASTING 2019-01-24 GLU,FAST 95 70-105 B12 2019-01-24 B12 367.0 232-1245 VITAMIN B12 2019-01-24 B12 FAST GLU 2019-01-24 FAST GLU colonoscopy 2019-02-11 Hgb A1c with MBG Estimation 2018-10-31 HbA1c 5.2 4.0-6.0 eAG 103 LIPID PANEL 2018-10-31 CHOL 135 <200 HDL 77 >40 LDL 50 SEE CHART NON HDL CHOL 58 LDL TARGET+30 TRIG 43 <150 CMP w/GFR 2018-10-31 A/G RATIO 1.8 1.0-2.3 ALB 4.5 3.2-5.2 ALK PHOS 53 39-117 ALT/SGPT 21 0-40 GAP 12.0 8-16 AST/SGOT 20 0-37 BILI,T 0.3 0.0-1.0 BUN,SERUM 26 6-20 CA 9.5 8.6-10.4 CL 104 96-108 CO2 26 22-30 CREAT,SERUM 1.3 0.7-1.2 GFR 61 GLOB 2.5 2.2-3.7 GLU 101 70-105 K 4.7 3.3-5.1 TOT PROT 7.0 5.9-8.4 NA 142 133-145 HEPATITIS C AB 2018-10-31 HEPATITIS C AB NON REACTIVE NEGATIVE Hgb A1c with MBG Estimation 2018-10-31 Hemoglobin A1c Mean Bld Glu Estim. LIPID PANEL 2018-10-31 CHOL TRIG HDL LDL NON HDL CHOL CMP w/GFR 2018-10-31 Glucose BUN Creatinine BUN/Creatinine Ratio Sodium Potassium Chloride CO2 Anion Gap Calcium Protein, Total Albumin Globulin A/G Ratio Bilirubin, Total AST ALT Alkaline Phosphatase Estimated GFR (Calc) HEPATITIS C AB 2018-10-31 HEPATITIS C AB Hgb A1c with MBG Estimation 2017-12-27 Hemoglobin A1c 4.9 Mean Bld Glu Estim. 94 LIPID PANEL 2017-12-27 CHOL 135 TRIG 27 HDL 76 LDL 54 NON HDL CHOL 59 CMP w/GFR 2017-12-27 Glucose 92 BUN 20 Creatinine 1.3 BUN/Creatinine Ratio Sodium 140 Potassium 4.3 Chloride 102 CO2 26 Anion Gap 12.0 Calcium 9.0 Protein, Total 6.3 Albumin 4.5 Globulin 1.8 A/G Ratio 2.5 Bilirubin, Total 0.4 AST 30 ALT 35 Alkaline Phosphatase 43 Estimated GFR (Calc) 61 Hgb A1c with MBG Estimation 2016-10-18 LIPID PANEL 2016-10-18 CHOL 148 <200 PSA 2016-10-18 PSA 2.51 0.0-3.5 CMP w/GFR 2016-10-18 A/G RATIO 2.6 1.0-2.3 PSA 2015-11-02 PSA 2.45 0.0-3.5 lipid panel (in house) 2015-11-02 TC 195 0 - <200mg/dL < 200mg/dL HDL >100 0 - >39mg/dL >3 9mg/dL TRG <45 0 - <150mg/dL < 150mg/dL LDL n/a 0 - <100mg/dL < 100mg/dL non'HDL n/a TC/HDL n/a Barium Swallow 2015-04-13 REASON FOR VISIT Annual PE, Px cancellation, annual PE labs 02/16, Lt elbow red and swollen, discuss EMG, urinary issue , 2 wk f/u, alternate: zyprexa, numbness in feet, Annual PE , upcoming labs for PE 11/05, discuss kidney referral , discuss psych, Lab order, N/s, high BP , Annual PE, numbness in hands, Px/hand issue, abnormal lab , annual PE , 6mo f/u mole check, Annual PE, f/u [facility] health admit , f/u [facility] Mental health admit , Annual PE , discuss [place] [facility] results, 6mo f/u bipolar, hospital discharge: psychosis, Kidney recommendation , est care, PE. Adult PE Insurance Providers Health Insurance Type Health Plan Insurance Address Health Plan Insurance Phone Health Plan Insurance Name Health Plan Coverage Dates Member ID Patient Relationship to Subscriber Patient Address Patient Phone Patient Name Patient Date of Subscriber ID Subscriber Name Subscriber Date of Group No [employer] [address] [address] [facility] [phone] [employer] self Eric Solden [id number] [employer] [place] [address] [facility] [place] [id number] [employer] [place] self Eric Solden [id number] [place] [address] [facility] [place] [id number] [employer] [place] self Eric Solden [id number]
== END 2023-01-15 14:55 | disposition home health service (06) | DRG 193 ==
LOC: MEDSUR 05:32 → ED 05:32 → OBSVTOIN 16:13 → MEDSUR 16:15
PROVIDERS: ADMIT Internal Medicine; ATTEND Internal Medicine